=== PATIENT | female | born 1965 | race Caucasian/White ===

== ENCOUNTER 2016-11-11 11:12 | Day surgery (SDC) | payer OTHER ==
--- NOTE | 2016-09-30 08:39 | HP ---
PROCEDURE DATE: 09/30/16 HISTORY OF PRESENT ILLNESS: The patient is a 51 y/o with history of aches and pains upper abdomen and right abdomen for a while. She had lupus and possibly fibromyalgia. She has had osteoarthritis. Has had history of diastasis recti in the midline. No prior upper abdominal surgeries. PAST MEDICAL HISTORY: Again, lupus (SLE), fibromyalgia, rheumatoid arthritis, osteoarthritis. PAST SURGICAL HISTORY: Has had left knee surgery. She had a cholecystectomy in the as well. She had tubal ligation. She had ablation in the past. She had bladder surgery. CURRENT MEDICATIONS: Ranitidine, takes [place] and Celebrex. ALLERGIES: LATEX. FAMILY HISTORY: Heart disease. SOCIAL HISTORY: 1/2 pack per day smoker. Denies alcohol abuse. REVIEW OF SYSTEMS: 10 systems reviewed per admission assessment. No chest pain or palpitations. Other systems negative or noncontributory other than the multiple medical problems as mentioned above. PHYSICAL EXAMINATION: GENERAL: No acute distress. HEENT: Sclerae nonicteric. NECK: No JVD. CHEST: Equal excursion. Nonlabored breathing. CVS: Regular rate and rhythm. ABDOMEN: Soft. Has some tenderness off to the right abdomen in the midline. She does seem to have a diastasis recti and there is no definitively palpable hernia in that area at the moment. EXTREMITIES: No edema. IMPRESSION: RIGHT-SIDED ABDOMINAL PAIN, UNCLEAR ETIOLOGY. Has had a prior cholecystectomy. Feel she would benefit from upper and lower endoscopy for further evaluation. Her risks and benefits explained in detail, but not limited to, bleeding; infection; small risk of bowel injury or perforation possibly requiring open procedure; small risk of missed or nondiagnosis or incomplete exam possibly requiring barium enema or other studies or procedures; general risk of anesthesia or sedation; risk of bowel prep; postoperative risk of nausea, vomiting, or cramping or possibility of inability to diagnosis the etiology of her symptoms possibly requiring further studies and/or even referral to other specialist. She understands and agrees to the planned procedure. Will proceed with outpatient EGD and colonoscopy for further evaluation.
--- NOTE | 2016-11-09 16:42 | HP ---
HISTORY OF PRESENT ILLNESS: The patient is a 51 year-old had some aches and pains for a while and some aches mid right abdomen area right upper quadrant area. She had cholecystectomy back in . PAST MEDICAL HISTORY: Lupus, fibromyalgia, rheumatoid arthritis and osteoarthritis. PAST SURGICAL HISTORY: Cholecystectomy in but she originally said she did not have any upper abdominal surgery. Left knee surgery in the past. Bladder surgery. Ablation surgery. She apparently had total reconstruction surgery of bladder according to the patient. MEDICATIONS: Celebrex, ranitidine, [place]. ALLERGIES: LATEX. FAMILY HISTORY: Heart disease. SOCIAL HISTORY: Half pack per day smoker. Denies alcohol abuse. REVIEW OF SYSTEMS: Ten systems reviewed. No chest pains or palpitations. She did have some diastasis recti in the midline. She had cholecystectomy. She denied any other upper abdominal surgeries. She did have a tubal in the past. Other systems negative or noncontributory as above and per preadmission questionnaire. PHYSICAL EXAMINATION: GENERAL: No acute distress. HEENT: Sclerae nonicteric. NECK: No JVD. CHEST: Equal excursion. No audible wheezes currently. CVS: Regular rate and rhythm. ABDOMEN: Soft. She has diastasis recti in the mid abdomen. She does have some mild tenderness over in her right abdomen. No peritoneal signs. There is no palpable hernia in right abdomen where she is having her aches and pains. EXTREMITIES: No significant edema. NEURO: Alert, moving extremities symmetrically. No gross motor deficits noted. CT scan showed fatty changes in the liver. She had cholecystectomy in the past. She had diverticulosis without diverticulitis otherwise unremarkable CT scan of the abdomen. Looks like there was an older CT scan done in the past. IMPRESSION: Some right-sided abdominal aches and pains. She is overweight. There is no definitive palpable hernia at the moment. I feel she would benefit from upper and lower endoscopy for further evaluation as she has not had a recent colonoscopy to rule out gastritis, peptic ulcer disease, duodenitis, colitis or other etiology or symptoms. Risks and benefits explained in detail including but not limited to bleeding or infection, risk of bowel injury or perforation possibly requiring open procedure, small risk of missed or nondiagnosis or incomplete exam possibly requiring barium enema, general risk of anesthesia or sedation, risk of bowel prep, postoperative risk of nausea, vomiting or cramping but not limited to. She also understand the possibility that we may not be to determine the etiology of her symptoms. She may need further work up and/or testing or even work up to rule out back problems other etiology, follow up with pain specialist if she fails to improve. She understands and agrees to the planned procedure, will proceed with EGD and colonoscopy as an outpatient.
[~2016-11-11 11:12] MED LIST: DIPRIVAN 200 MG/20 ML IV ONE; Lactated Ringers 1,000 ML IV SCH; SUBLIMAZE 100 MCG/2 ML IV ONE; Versed 2 MG/2 ML Injection IV ONE
[2016-11-11] MEDS ORDERED: Lactated Ringers 1,000 ML IV ONE ×2 (11:50→14:04)
[2016-11-11 15:58] VITALS: O2SAT 97
[2016-11-11 16:05] VITALS: BP 146/95; PULSE 83
--- NOTE | 2016-11-12 09:09 | OP ---
THIS REPORT WAS AMENDED ON 11/18/16. SURGERY DATE: 11/11/16 SURGERY TIME: 1350 PREOPERATIVE DIAGNOSIS: 1. HISTORY OF SOME RIGHT ABDOMINAL PAIN. POSTOPERATIVE DIAGNOSIS: 1. GASTRODUODENAL INFLAMMATION PYLORIC CHANNEL AREA. 2. MILD GASTRITIS. 3. FAIR TO POOR COLON PREP LIMITING COLON EXAM. 4. DIVERTICULOSIS. 5. SMALL INTERNAL/EXTERNAL HEMORRHOIDS. 6. VERY TORTUOUS COLON. PROCEDURE: 1. EGD with cold biopsy small bowel to evaluate for celiac sprue. 2. Cold biopsy gastroduodenal inflammation. 3. Cold biopsy antrum for Helicobacter pylori. 4. Cold biopsy slight inflammation gastric side of gastroesophageal junction at 40 cm. 5. Colonoscopy to cecum with random cold biopsies throughout the cecum, right colon, and transverse colon to evaluate for microscopic colitis. SURGEON: Dr. Farrukh Heath. ANESTHESIA: MAC. ESTIMATED BLOOD LOSS: Minimal. INDICATIONS: As noted above. Risks and benefits explained in detail, but not limited to, including the possibility of inability to diagnose the etiology of her symptoms. Consent was obtained. DESCRIPTION OF PROCEDURE AND FINDINGS: The patient was taken to the endoscopy suite. MAC anesthesia induced. After official time-out, no disagreement in planned procedure. Bite block positioned. Video gastroscope easily passed down the esophagus through the patent pylorus to the junction of the 2nd and 3rd portion of the duodenum. There had been some inflammation in the pyloric channel area and gastroduodenal inflammation, but nothing deep enough to call any ulcers. The scope was able to be passed around the 2nd and 3rd portion of the duodenum. The ampulla area was grossly unremarkable on this exam. Cold biopsy taken in the 2nd portion of the duodenum to evaluate for celiac sprue. The scope was pulled back. Cold biopsy taken of the gastroduodenal inflammation area as well as cold biopsy also taken of the antrum to evaluate for Helicobacter pylori. On retroflex, the gastroesophageal junction appeared to be fairly snug against the scope. No evidence of any large hiatal hernia. Otherwise, the scope was carefully withdrawn. No signs of any polyps, masses, ulcers, or any other mucosal lesions other than the mild gastritis. Cold biopsy had been taken for Helicobacter pylori. The scope pulled back in the gastroesophageal junction, noted to be about 40 cm. There was slight thickening or inflammation on the gastric side of the gastroesophageal junction. Whether this is just normal variation of the gastric mucosa or not, cold biopsy was taken for further evaluation. Otherwise, the remainder of the esophagus was grossly unremarkable. No signs of any obvious mucosal lesions. Scope was withdrawn. Attention was then turned to the colonoscopy and digital rectal exam did not reveal any rectal masses. She did have some small internal/external hemorrhoids. Video colonoscope inserted and passed up through the very tortuous sigmoid, descending, and transverse colon. With external pressure and positioning on her back and 2 different staff members putting pressure on the abdomen, slowly, carefully the scope was finally able to be passed down to the ascending colon to the cecal area. Prep overall was rather poor very much limiting the exam particularly in the right colon. There were no signs of any large polyps, masses, or obstructing lesions. Because of looping of the scope, the scope could not be safely passed up the terminal ileum at this juncture. The cecum was visualized again limited by the poor prep, but no signs of any large polyps, masses, or obstructing lesions. The scope was then carefully withdrawn. Cold biopsy taken in the cecum to evaluate for microscopic colitis. Random cold biopsy taken of the right colon and transverse colon to evaluate for microscopic colitis. There were no signs of any large polyps, masses, or obstructing lesions. She did have some moderate diverticulosis in the left colon. Had some small internal/external hemorrhoids. Again, the poor prep very much limited the exam. There were no signs of any large polyps, masses, or obstructing lesions. The scope was withdrawn. The patient tolerated the procedure well. There were no immediate complications. Findings were discussed with the family in the waiting area.
== END 2016-11-11 15:45 | disposition home or self-care (01) ==
LOC: SDC 11:12
PROVIDERS: ATTEND Surgery
PROC: 0DB88ZX Excision of Small Intestine, Via Natural or Artificial Opening Endoscopic, Diagnostic (ICD-10-PCS; principal; 2016-11-11)
PROC: 0DB38ZX Excision of Lower Esophagus, Via Natural or Artificial Opening Endoscopic, Diagnostic (ICD-10-PCS; 2016-11-11)
PROC: 0DB68ZX Excision of Stomach, Via Natural or Artificial Opening Endoscopic, Diagnostic (ICD-10-PCS; 2016-11-11)
PROC: 0DBH8ZX Excision of Cecum, Via Natural or Artificial Opening Endoscopic, Diagnostic (ICD-10-PCS; 2016-11-11)
PROC: 0DBL8ZX Excision of Transverse Colon, Via Natural or Artificial Opening Endoscopic, Diagnostic (ICD-10-PCS; 2016-11-11)
PROC: 0DBF8ZX Excision of Right Large Intestine, Via Natural or Artificial Opening Endoscopic, Diagnostic (ICD-10-PCS; 2016-11-11)
DX: K29.80 Duodenitis without bleeding (principal); K29.70 Gastritis, unspecified, without bleeding; K57.90 Diverticulosis of intestine, part unspecified, without perforation or abscess without bleeding; K64.4 Residual hemorrhoidal skin tags; K64.8 Other hemorrhoids; M79.7 Fibromyalgia; M19.90 Unspecified osteoarthritis, unspecified site; M06.9 Rheumatoid arthritis, unspecified; Z72.0 Tobacco use
CPT/HCPCS: 00740; 00810; 36415; 88305; 88312; J2250; J2704; J3010

== ENCOUNTER 2019-02-24 12:10 | Day surgery (SDC) | payer OTHER ==
[2019-02-24] MEDS ORDERED: Xylocaine-Mpf 2% 5 Ml Vial IJ ONE (12:11)
[2019-02-24] MEDS ORDERED: Depo-Medrol 40 MG/ML IM ONE (12:11)
[2019-02-24] MEDS ORDERED: Ketamine HCl 50 MG/ML IJ ONE (12:11)
[2019-02-24] MEDS ORDERED: DIPRIVAN 200 MG/20 ML IV ONE (12:11)
[2019-02-24] MEDS ORDERED: Lactated Ringers 1,000 ML IV ONE (14:58)
--- NOTE | 2019-02-24 16:12 | XRAY ---
Indication: Bilateral L4-S1 MBB. Intraoperative fluoroscopy was provided for 18 seconds. Single digital spot image submitted for interpretation demonstrates posterior needle tips projecting over the expected course of the left and right L4-S1 nerve roots. Correlate with intraoperative findings/report.
--- NOTE | 2019-02-24 16:14 | XRAY ---
18 seconds of fluoroscopy was used in surgery for bilateral L4-L5, L5-S1 MBB.
== END 2019-02-24 14:36 | disposition home or self-care (01) ==
LOC: SDC-PAIN 12:10
PROVIDERS: ATTEND Psychiatry & Neurology Pain Medicine
DX: M47.816 Spondylosis without myelopathy or radiculopathy, lumbar region (principal); E11.9 Type 2 diabetes mellitus without complications; I10 Essential (primary) hypertension; M32.9 Systemic lupus erythematosus, unspecified; F41.9 Anxiety disorder, unspecified; F32.9 Major depressive disorder, single episode, unspecified; M54.30 Sciatica, unspecified side; R59.1 Generalized enlarged lymph nodes; G47.30 Sleep apnea, unspecified; M19.90 Unspecified osteoarthritis, unspecified site; G62.9 Polyneuropathy, unspecified; K21.9 Gastro-esophageal reflux disease without esophagitis; M79.7 Fibromyalgia; Z79.899 Other long term (current) drug therapy
CPT/HCPCS: 64493; 64494; 72020; 77002; 84703; J1030; J2704

== ENCOUNTER 2019-05-19 10:04 | Day surgery (SDC) | payer OTHER ==
[2019-05-19] MEDS ORDERED: Depo-Medrol 40 MG/ML IM ONE (10:05)
[2019-05-19] MEDS ORDERED: Marcaine 0.5% SDV 10 ML IJ ONE (10:05)
[2019-05-19] MEDS ORDERED: Ketamine HCl 50 MG/ML ONE (11:07)
[2019-05-19] MEDS ORDERED: DIPRIVAN 200 MG/20 ML IV ONE (11:07)
--- NOTE | 2019-05-19 12:28 | XRAY ---
Indication: Bilateral L4-S1 MBB. Intraoperative fluoroscopy was provided for 11 seconds. Single digital spot image submitted for interpretation demonstrates posterior needle tips projecting over the expected course of the left and right L4-S1 nerve roots. Correlate with intraoperative findings/report.
--- NOTE | 2019-05-19 12:31 | XRAY ---
11 seconds fluoroscopy time in surgery for bilateral L4-S1 MBB.
[2019-05-19] MEDS ORDERED: Lactated Ringers 1,000 ML IV ONE (15:52)
== END 2019-05-19 11:45 | disposition home or self-care (01) ==
LOC: SDC-PAIN 10:04
PROVIDERS: ATTEND Psychiatry & Neurology Pain Medicine
DX: M47.816 Spondylosis without myelopathy or radiculopathy, lumbar region (principal); E11.9 Type 2 diabetes mellitus without complications; F41.8 Other specified anxiety disorders; I10 Essential (primary) hypertension; R59.1 Generalized enlarged lymph nodes; G47.30 Sleep apnea, unspecified; G62.9 Polyneuropathy, unspecified; M79.7 Fibromyalgia
CPT/HCPCS: 64493; 64494; 72020; 77002; 84703; J1030; J2704

== ENCOUNTER 2019-09-15 13:31 | Day surgery (SDC) | payer OTHER ==
[2019-09-15] MEDS ORDERED: Marcaine 0.5% SDV 10 ML IJ ONE (13:32)
[2019-09-15] MEDS ORDERED: Depo-Medrol 40 MG/ML IM ONE (13:32)
[2019-09-15] MEDS ORDERED: Xylocaine 1% Vial 30 ML PF IJ ONE (13:32)
[2019-09-15] MEDS ORDERED: Ketamine HCl 50 MG/ML ONE (14:46)
[2019-09-15] MEDS ORDERED: DIPRIVAN 200 MG/20 ML IV ONE (14:46)
[2019-09-15] MEDS ORDERED: Lactated Ringers 1,000 ML IV ONE (16:18)
--- NOTE | 2019-09-15 17:05 | XRAY ---
Indication: Left L4-S1 RFA. Intraoperative fluoroscopy was provided for 14 seconds. 4 digital spot images submitted for interpretation demonstrates posterior needle tips projecting over the expected course of the left L4-S1 nerve roots. Correlate with intraoperative findings/report.seconds.
--- NOTE | 2019-09-15 17:13 | XRAY ---
14 seconds fluoroscopy time in surgery for left L4-S1 RFA.
== END 2019-09-15 15:13 | disposition home or self-care (01) ==
LOC: SDC-PAIN 13:31
PROVIDERS: ATTEND Psychiatry & Neurology Pain Medicine
DX: M47.816 Spondylosis without myelopathy or radiculopathy, lumbar region (principal); E11.9 Type 2 diabetes mellitus without complications; I10 Essential (primary) hypertension; M32.9 Systemic lupus erythematosus, unspecified; R59.1 Generalized enlarged lymph nodes; G47.30 Sleep apnea, unspecified; G62.9 Polyneuropathy, unspecified; M79.7 Fibromyalgia; F41.8 Other specified anxiety disorders; K21.9 Gastro-esophageal reflux disease without esophagitis; Z79.899 Other long term (current) drug therapy
CPT/HCPCS: 72100; 77002; 84703; J1030; J2001; J2704

== ENCOUNTER 2019-09-29 10:17 | Day surgery (SDC) | payer OTHER ==
[2019-09-29] MEDS ORDERED: Depo-Medrol 40 MG/ML IM ONE (10:18)
[2019-09-29] MEDS ORDERED: Xylocaine 1% Vial 30 ML PF IJ ONE (10:18)
[2019-09-29] MEDS ORDERED: Marcaine 0.5% SDV 10 ML IJ ONE (10:18)
[2019-09-29] MEDS ORDERED: Ketamine HCl 50 MG/ML ONE (12:04)
[2019-09-29] MEDS ORDERED: DIPRIVAN 200 MG/20 ML IV ONE (12:04)
--- NOTE | 2019-09-29 13:19 | XRAY ---
Indication: Right L4-S1 MANAGER CHEMISTRY. Intraoperative fluoroscopy was provided for 33 seconds. 2 digital spot images submitted for interpretation demonstrates posterior needle tips projecting over the expected course of the right L4-L5 nerve roots. Correlate with intraoperative findings/report.
--- NOTE | 2019-09-29 13:52 | XRAY ---
33 seconds fluoroscopy time in surgery for right L4-S1 RFA.
[2019-09-29] MEDS ORDERED: Lactated Ringers 1,000 ML IV ONE (14:29)
== END 2019-09-29 12:46 | disposition home or self-care (01) ==
LOC: SDC-PAIN 10:17
PROVIDERS: ATTEND Psychiatry & Neurology Pain Medicine
DX: M47.816 Spondylosis without myelopathy or radiculopathy, lumbar region (principal); E11.9 Type 2 diabetes mellitus without complications; I10 Essential (primary) hypertension; F41.8 Other specified anxiety disorders; R59.1 Generalized enlarged lymph nodes; G47.30 Sleep apnea, unspecified; G62.9 Polyneuropathy, unspecified; K21.9 Gastro-esophageal reflux disease without esophagitis; M79.7 Fibromyalgia; F31.9 Bipolar disorder, unspecified; R56.9 Unspecified convulsions; M32.9 Systemic lupus erythematosus, unspecified; Z79.899 Other long term (current) drug therapy
CPT/HCPCS: 64635; 64636; 72100; 77002; 84703; J1030; J2001; J2704

== ENCOUNTER 2023-12-03 14:16 | Day surgery (SDC) | payer MEDICAID ==
[2023-12-03] MEDS ORDERED: XYLOCAINE-MPF 1% 5ML SDV IJ ONE (14:17)
[2023-12-03] MEDS ORDERED: Depo-Medrol 40 MG/ML IM ONE (14:17)
[2023-12-03] MEDS ORDERED: BUPIVACAINE 0.5% VIAL IJ ONE (14:17)
[2023-12-03] MEDS ORDERED: Lactated Ringers 1,000 ML IV ONE (16:24)
[2023-12-03] MEDS ORDERED: DIPRIVAN 200 MG/20 ML IV ONE (17:04)
--- NOTE | 2023-12-03 18:29 | XRAY ---
Indication: Right L4-S1 RFA. Intraoperative fluoroscopy provided for 27 seconds. 4 digital spot images submitted for interpretation demonstrates posterior needle tips projecting over the expected right L4-S1 nerve roots. Correlate with intraoperative findings/report.
--- NOTE | 2023-12-04 08:44 | XRAY ---
27 seconds of fluoroscopy was used in surgery for a right L4-S1 RFA.
== END 2023-12-03 17:42 | disposition home or self-care (01) ==
LOC: SDC-PAIN 14:16
PROVIDERS: ATTEND Psychiatry & Neurology Pain Medicine
DX: M47.816 Spondylosis without myelopathy or radiculopathy, lumbar region (principal); E11.9 Type 2 diabetes mellitus without complications
CPT/HCPCS: 64635; 64636; 72100; 77002; 82947; J1030; J2704

== ENCOUNTER 2023-12-04 07:58 | Day surgery (SDC) | payer MEDICAID ==
[2023-12-04] MEDS ORDERED: Depo-Medrol 40 MG/ML IM ONE (07:59)
[2023-12-04] MEDS ORDERED: XYLOCAINE-MPF 1% 5ML SDV IJ ONE (07:59)
[2023-12-04] MEDS ORDERED: BUPIVACAINE 0.5% VIAL IJ ONE (07:59)
[2023-12-04] MEDS ORDERED: DIPRIVAN 200 MG/20 ML IV ONE ×2 (09:46→09:57)
--- NOTE | 2023-12-04 10:53 | XRAY ---
Indication: Left L4-S1 RFA. Intraoperative fluoroscopy provided for 33 seconds. 5 digital spot image submitted for interpretation demonstrates posterior needle tips projecting over the expected left L4-S1 nerve roots. Correlate with intraoperative findings/report.
--- NOTE | 2023-12-04 11:19 | XRAY ---
33 seconds of fluoroscopy was used in surgery for a left L4-S1 RFA.
[2023-12-04] MEDS ORDERED: Lactated Ringers 1,000 ML IV ONE (12:04)
== END 2023-12-04 10:24 | disposition home or self-care (01) ==
LOC: SDC-PAIN 07:58
PROVIDERS: ATTEND Psychiatry & Neurology Pain Medicine
DX: M47.816 Spondylosis without myelopathy or radiculopathy, lumbar region (principal); E11.9 Type 2 diabetes mellitus without complications
CPT/HCPCS: 64635; 64636; 72100; 77002; 82947; J1030; J2704